=== PATIENT | female | born 1990 | race American Indian/Alaskan Native ===

== ENCOUNTER 2018-05-04 23:02 | Emergency (ER) | payer SELFPAY ==
[2018-05-04 23:29] VITALS: BP 115/73
[2018-05-04] MEDS ORDERED: TYLENOL PO ONE (23:29)
[2018-05-04] MEDS ORDERED: TYLENOL ONE (23:29)
[2018-05-05] MEDS ORDERED: DECADRON IM ONE (01:29)
[2018-05-05] MEDS ORDERED: BENADRYL PO ONE (01:29)
[2018-05-05] MEDS ORDERED: AUGMENTIN 875 MG PO ONE (01:29)
--- NOTE | 2018-05-05 02:42 | Emergency Department Report ---
ED Headache HPI - General Chief Complaint: Headache Stated Complaint: HEADACHE Time Seen by Provider: 05/05/18 01:29 - History of Present Illness Initial Comments: pt is a 27-year-old -Cypriot female who presents for right sided frontal headache recurring for the last 4 days pain described as 6/10 sharp aching with sinus pressure there is no fever no chills patient does note postnasal drip is clear there is no wheezing or shortness of breath no diaphoresis no back pain no lightheadedness no dizziness is minimal photophobia and no nausea vomiting symptoms are exacerbated by activity position and movement symptoms are relieved temporarily by NSAIDs and rest Timing/Duration: other (4 days ) Quality: moderate Head Injury Location: frontal Recent Head Trauma: occasional headaches (same location usual intensity ) Modifying Factors: improves with: movement, other (position) Associated Symptoms: nasal drainage, sinus infection Allergies/Adverse Reactions: Allergies No Known Allergies Allergy (Unverified 05/04/18 23:04) Home Medications: Ambulatory Orders Acetaminophen [Tylenol Extra Strength] 1,000 mg PO QID PRN #30 tablet 05/05/18 Amoxicillin/Potassium Clav [Augmentin 875-125 Tablet] 1 each PO BID 10 Days #20 tablet 05/05/18 Metoclopramide [Reglan] 10 mg PO TID 10 Days #30 tab 05/05/18 diphenhydrAMINE [Benadryl CAP] 50 mg PO Q8HR PRN #30 capsule 05/05/18 ED Review of Systems ROS: Stated complaint: HEADACHE Other details as noted in HPI Constitutional: denies: chills, fever Eyes: denies: eye pain, eye discharge, vision change ENT: congestion Respiratory: denies: cough, shortness of breath, wheezing Cardiovascular: denies: chest pain, palpitations Endocrine: no symptoms reported Gastrointestinal: denies: abdominal pain, nausea, diarrhea Genitourinary: as per HPI Musculoskeletal: denies: back pain, joint swelling, arthralgia Skin: denies: rash, lesions Neurological: denies: headache, weakness, paresthesias Psychiatric: denies: anxiety, depression Hematological/Lymphatic: denies: easy bleeding, easy bruising ED Past Medical Hx - Past Medical History Previous Medical History?: No - Surgical History Past Surgical History?: No - Social History Smoking Status: Current Every Day Smoker Substance Use Type: None - Medications Home Medications: Home Medications Medication Instructions Recorded Confirmed Last Taken Type Acetaminophen [Tylenol Extra 1,000 mg PO QID PRN #30 tablet 05/05/18 Unknown Rx Strength] Amoxicillin/Potassium Clav 1 each PO BID 10 Days #20 tablet 05/05/18 Unknown Rx [Augmentin 875-125 Tablet] Metoclopramide [Reglan] 10 mg PO TID 10 Days #30 tab 05/05/18 Unknown Rx diphenhydrAMINE [Benadryl CAP] 50 mg PO Q8HR PRN #30 capsule 05/05/18 Unknown Rx ED Physical Exam - General Limitations: No Limitations General appearance: alert, in no apparent distress - Head Head exam: Present: atraumatic, normocephalic - Eye Eye exam: Present: normal appearance, PERRL, EOMI Pupils: Present: normal accommodation - ENT ENT exam: Present: mucous membranes moist - Expanded ENT Exam Expanded Ear exam: Present: normal external inspection TM/Canal exam: Erythema: Left TM, Canal Tenderness: Left TM Mouth exam: Absent: trismus Throat exam: Positive: tonsillar erythema, other (uvula midline no stridor no exudate no lesions airway is patent ). Negative: tonsillomegaly, tonsillar exudate, R peritonsillar mass, L peritonsillar mass - Respiratory Respiratory exam: Present: normal lung sounds bilaterally. Absent: wheezes, chest wall tenderness - Cardiovascular Cardiovascular Exam: Present: regular rate, normal rhythm, normal heart sounds. Absent: systolic murmur, diastolic murmur, rubs, gallop - GI/Abdominal GI/Abdominal exam: Present: soft, normal bowel sounds. Absent: distended, tenderness, guarding, rebound, bruit, hernia - Rectal Rectal exam: Present: deferred - Extremities Exam Extremities exam: Present: normal inspection, full ROM, normal capillary refill, joint swelling. Absent: tenderness, calf tenderness - Back Exam Back exam: Present: normal inspection, full ROM. Absent: tenderness, CVA tenderness (R), CVA tenderness (L), muscle spasm, paraspinal tenderness, vertebral tenderness, rash noted - Neurological Exam Neurological exam: Present: alert, oriented X3, CN II-XII intact, normal gait, reflexes normal - Psychiatric Psychiatric exam: Present: normal affect, normal mood - Skin Skin exam: Present: warm, dry, intact, normal color. Absent: rash ED Course Vital Signs 05/04/18 23:26 Temperature 98.8 F Pulse Rate 66 Blood Pressure 115/73 O2 Sat by Pulse 100 Oximetry ED Medical Decision Making - Medical Decision Making headache is improved, this is likely sinuse infection, will tx for same, rx. :augmentin , tylenol, benadry, reglan, pt with will follow up with [facility] in 2 days pt verbalized agreement with discharge plan. Critical care attestation.: If time is entered above; I have spent that time in minutes in the direct care of this critically ill patient, excluding procedure time. ED Disposition Clinical Impression: Sinus headache Sinusitis Qualifiers: Sinusitis location: frontal Chronicity: acute Recurrence: recurrent Qualified Code(s): J01.11 - Acute recurrent frontal sinusitis Headache Qualifiers: Headache type: unspecified Headache chronicity pattern: acute headache Intractability: not intractable Qualified Code(s): R51 - Headache Disposition: - TO HOME OR SELFCARE Is pt being admited?: No Does the pt Need Aspirin: No Condition: Stable Instructions: Sinusitis (ED), Acute Headache (ED) Prescriptions: Acetaminophen [Tylenol Extra Strength] 1,000 mg PO QID PRN #30 tablet PRN Reason: Pain , Severe (7-10) Amoxicillin/Potassium Clav [Augmentin 875-125 Tablet] 1 each PO BID 10 Days #20 tablet diphenhydrAMINE [Benadryl CAP] 50 mg PO Q8HR PRN #30 capsule PRN Reason: sinus congestion headache Metoclopramide [Reglan] 10 mg PO TID 10 Days #30 tab Referrals: CONRADO MAK MD [Primary Care Provider] - 3-5 Days Forms: Work/School Release Form(ED) Time of Disposition: 02:52
== END 2018-05-05 02:59 | disposition home or self-care (01) ==
LOC: ED 23:02
DX: J01.11 Acute recurrent frontal sinusitis (principal); F17.200 Nicotine dependence, unspecified, uncomplicated
CPT/HCPCS: 96372; 99283; J1100

== ENCOUNTER 2018-06-19 16:23 | Emergency (ER) | payer OTHER ==
--- NOTE | 2018-06-19 16:30 | Emergency Department Report ---
Chief Complaint: Abdominal Pain Stated Complaint: LOWER BACK PAIN/SORE THROAT/STOMACH PAIN Time Seen by Provider: 06/19/18 16:27 - HPI History of Present Illness: pt presents to the ED with c/o supraubic pain, back pain that began two days ago pain feels like a cramping also has a sore throat "feels scratchy" no N/V, no fever no diarrhea, no urinary sx normal BM today LNMP "last month" has not taken any medication to relieve sx no PMHx, no medications on a daily basis VSS (+) smoker, (+) marijuana MSE screening note: Focused history and physical exam performed. Due to findings the following was ordered: UA, urine preg, labs ED Disposition for MSE Condition: Stable Instructions: Abdominal Pain (ED)
[2018-06-19 17:22] LABS: Alanine Aminotransferase 11 units/L (7-56); BUN/Creatinine Ratio 10; Bilirubin,Urine NEG (Negative); Blood Urea Nitrogen 7 mg/dL (7-17); Blood,Urine NEG (Negative); Color,Urine Amber (Yellow); Hemolysis Index 0; Mucus,Urine 3+ /HPF; Protein,Urine <15 mg/dL mg/dL (Negative)
[2018-06-19 17:26] LABS: Hematocrit 37.5 % (30.3-42.9); Hemoglobin 11.6 gm/dl (10.1-14.3); Mean Corpuscular HGB Conc 31 % (30-34); Mean Corpuscular Volume 84 fl (79-97); Platelet Count 336 K/mm3 (140-440); Red Blood Count 4.45 M/mm3 (3.65-5.03)
[2018-06-19 17:27] LABS: HCG Qualitative,Urine Negative (Negative)
[2018-06-19 17:31] LABS: Basophils % (Auto) 0.5 % (0.0-1.8); Eosinophils % (Auto) 2.2 % (0.0-4.3); Lymphocytes # (Auto) 2.1 K/mm3 (1.2-5.4); Lymphocytes % (Auto) 36.9 % (13.4-35.0); Monocytes # (Auto) 0.6 K/mm3 (0.0-0.8)
[2018-06-19 17:32] LABS: Eosinophils # (Auto) 0.1 K/mm3 (0.0-0.4)
--- NOTE | 2018-06-19 19:40 | Emergency Department Report ---
ED Dysuria HPI - HPI Chief Complaint: Abdominal Pain Stated Complaint: LOWER BACK PAIN/SORE THROAT/STOMACH PAIN Time Seen by Provider: 06/19/18 16:27 Duration: 1 Day Location of Discomfort: Suprapubic Symptoms: Dysuria: No, Frequency: No, Suprapubic Pain: No, Flank Pain: No, Fever: No, Hematuria: No, Abdominal Pain: No, Previous UTI's: No Other History: Visit 27-year-old female who is late on her period. She states that she is 3 days late and took a home test and it was positive. She has been twice and had 2 miscarriages. She has no primary care doctor. No major medical problems and takes no medications at home. ED Review of Systems ROS: Stated complaint: LOWER BACK PAIN/SORE THROAT/STOMACH PAIN Other details as noted in HPI Comment: All other systems reviewed and negative ED Past Medical Hx - Past Medical History Previous Medical History?: No - Surgical History Past Surgical History?: No - Social History Smoking Status: Never Smoker Substance Use Type: None - Medications Home Medications: Home Medications Medication Instructions Recorded Confirmed Last Taken Type Acetaminophen [Tylenol Extra 1,000 mg PO QID PRN #30 tablet 05/05/18 Unknown Rx Strength] Amoxicillin/Potassium Clav 1 each PO BID 10 Days #20 tablet 05/05/18 Unknown Rx [Augmentin 875-125 Tablet] Metoclopramide [Reglan] 10 mg PO TID 10 Days #30 tab 05/05/18 Unknown Rx diphenhydrAMINE [Benadryl CAP] 50 mg PO Q8HR PRN #30 capsule 05/05/18 Unknown Rx Dysuria Exam - Exam General: Vital signs noted. No distress. Alert and acting appropriately. Exam: Yes Moist Mucous Membranes, No CVA Tenderness, No Abdominal Tenderness, No Rigidity or Guarding Labs: Lab Results 06/19/18 06/19/18 06/19/18 Range/Units 16:42 16:42 16:42 WBC 5.7 (4.5-11.0) K/mm3 RBC 4.45 (3.65-5.03) M/mm3 Hgb 11.6 (10.1-14.3) gm/dl Hct 37.5 (30.3-42.9) % MCV 84 (79-97) fl MCH 26 L (28-32) pg MCHC 31 (30-34) % RDW 17.0 H (13.2-15.2) % Plt Count 336 (140-440) K/mm3 Lymph % (Auto) 36.9 H (13.4-35.0) % [place] % (Auto) 10.0 H (0.0-7.3) % Eos % (Auto) 2.2 (0.0-4.3) % Baso % (Auto) 0.5 (0.0-1.8) % Lymph # 2.1 (1.2-5.4) K/mm3 [place] # 0.6 (0.0-0.8) K/mm3 Eos # 0.1 (0.0-0.4) K/mm3 Baso # 0.0 (0.0-0.1) K/mm3 Seg Neutrophils % 50.4 (40.0-70.0) % Seg Neutrophils # 2.9 (1.8-7.7) K/mm3 Sodium 139 (137-145) mmol/L Potassium 3.9 (3.6-5.0) mmol/L Chloride 105.4 (98-107) mmol/L Carbon Dioxide 25 (22-30) mmol/L Anion Gap 13 mmol/L BUN 7 (7-17) mg/dL Creatinine 0.7 (0.7-1.2) mg/dL Estimated GFR > 60 ml/min BUN/Creatinine Ratio 10 % Glucose 105 H (65-100) mg/dL Calcium 9.0 (8.4-10.2) mg/dL Total Bilirubin 0.20 (0.1-1.2) mg/dL AST 14 (5-40) units/L ALT 11 (7-56) units/L Alkaline Phosphatase 63 (35-129) units/L Total Protein 7.0 (6.3-8.2) g/dL Albumin 4.0 (3.9-5) g/dL Albumin/Globulin Ratio 1.3 % Lipase 28 (13-60) units/L Urine Color Flavia (Yellow) Urine Turbidity Clear (Clear) Urine pH 5.0 (5.0-7.0) Urine Protein <15 mg/dl (Negative) mg/dL Urine Glucose (UA) Neg (Negative) mg/dL Urine Ketones Tr (Negative) mg/dL Urine Blood Neg (Negative) Urine Nitrite Neg (Negative) Urine Bilirubin Neg (Negative) Urine Urobilinogen 2.0 (<2.0) mg/dL Ur Leukocyte Esterase Tr (Negative) Urine WBC (Auto) 3.0 (0.0-6.0) /HPF Urine RBC (Auto) 6.0 (0.0-6.0) /HPF U Epithel Cells (Auto) 6.0 (0-13.0) /HPF Urine Mucus 3+ /HPF Urine HCG, Qual Negative (Negative) ED Course Vital Signs 06/19/18 16:33 Temperature 98.9 F Pulse Rate 79 Respiratory 16 Rate Blood Pressure 123/90 O2 Sat by Pulse 99 Oximetry ED Medical Decision Making - Lab Data Result diagrams: 06/19/18 16:42 06/19/18 16:42 - Medical Decision Making here for routine test which was negative. Lab Results 06/19/18 06/19/18 06/19/18 Range/Units 16:42 16:42 16:42 WBC 5.7 (4.5-11.0) K/mm3 RBC 4.45 (3.65-5.03) M/mm3 Hgb 11.6 (10.1-14.3) gm/dl Hct 37.5 (30.3-42.9) % MCV 84 (79-97) fl MCH 26 L (28-32) pg MCHC 31 (30-34) % RDW 17.0 H (13.2-15.2) % Plt Count 336 (140-440) K/mm3 Lymph % (Auto) 36.9 H (13.4-35.0) % [place] % (Auto) 10.0 H (0.0-7.3) % Eos % (Auto) 2.2 (0.0-4.3) % Baso % (Auto) 0.5 (0.0-1.8) % Lymph # 2.1 (1.2-5.4) K/mm3 [place] # 0.6 (0.0-0.8) K/mm3 Eos # 0.1 (0.0-0.4) K/mm3 Baso # 0.0 (0.0-0.1) K/mm3 Seg Neutrophils % 50.4 (40.0-70.0) % Seg Neutrophils # 2.9 (1.8-7.7) K/mm3 Sodium 139 (137-145) mmol/L Potassium 3.9 (3.6-5.0) mmol/L Chloride 105.4 (98-107) mmol/L Carbon Dioxide 25 (22-30) mmol/L Anion Gap 13 mmol/L BUN 7 (7-17) mg/dL Creatinine 0.7 (0.7-1.2) mg/dL Estimated GFR > 60 ml/min BUN/Creatinine Ratio 10 % Glucose 105 H (65-100) mg/dL Calcium 9.0 (8.4-10.2) mg/dL Total Bilirubin 0.20 (0.1-1.2) mg/dL AST 14 (5-40) units/L ALT 11 (7-56) units/L Alkaline Phosphatase 63 (35-129) units/L Total Protein 7.0 (6.3-8.2) g/dL Albumin 4.0 (3.9-5) g/dL Albumin/Globulin Ratio 1.3 % Lipase 28 (13-60) units/L Urine Color Flavia (Yellow) Urine Turbidity Clear (Clear) Urine pH 5.0 (5.0-7.0) Urine Protein <15 mg/dl (Negative) mg/dL Urine Glucose (UA) Neg (Negative) mg/dL Urine Ketones Tr (Negative) mg/dL Urine Blood Neg (Negative) Urine Nitrite Neg (Negative) Urine Bilirubin Neg (Negative) Urine Urobilinogen 2.0 (<2.0) mg/dL Ur Leukocyte Esterase Tr (Negative) Urine WBC (Auto) 3.0 (0.0-6.0) /HPF Urine RBC (Auto) 6.0 (0.0-6.0) /HPF U Epithel Cells (Auto) 6.0 (0-13.0) /HPF Urine Mucus 3+ /HPF Urine HCG, Qual Negative (Negative) Vital Signs 06/19/18 16:33 Temperature 98.9 F Pulse Rate 79 Respiratory 16 Rate Blood Pressure 123/90 O2 Sat by Pulse 99 Oximetry Critical care attestation.: If time is entered above; I have spent that time in minutes in the direct care of this critically ill patient, excluding procedure time. ED Disposition Clinical Impression: Wellness examination Disposition: - TO HOME OR SELFCARE Is pt being admited?: No Does the pt Need Aspirin: No Condition: Stable Additional Instructions: negative Referrals: [facility] MD SALVADOR [Primary Care Provider] - 3-5 Days EVANS SHELLEY MD [Staff Physician] - 3-5 Days Time of Disposition: 19:39
[2018-06-21 17:53] VITALS: BP 131/83
== END 2018-06-19 21:14 | disposition home or self-care (01) ==
LOC: ED 16:23
DX: R10.2 Pelvic and perineal pain (principal); M54.9 Dorsalgia, unspecified; J02.9 Acute pharyngitis, unspecified
CPT/HCPCS: 36415; 80053; 81001; 81025; 83690; 85025